=== PATIENT | female | born 1975 | race Caucasian/White ===

== ENCOUNTER 2020-11-14 17:56 | Inpatient (IN) | payer MEDICAID, SELFPAY ==
--- NOTE | ~2020-11-14 | XR_ITS ---
EXAMINATION: XR abdomen/kub 1V DATE: 11/16/2020 05:47 INDICATION: Colitis TECHNIQUE: A supine view of the abdomen on 2 radiographs was obtained. COMPARISON: None. FINDINGS: Small amount of gas scattered throughout nondilated small bowel and colon. There is a relatively ahau stral pattern to the ascending and transverse colon consistent with provided history of ulcerative co litis. Mild bandlike opacities at the lung bases consistent with discoid atelectasis. Heart size is n ormal. Mild lumbar levocurvature with mild spondylosis. IMPRESSION: 1. Nonobstructive bowel gas pattern with ahaustral colon consistent with chronic ulcerative colitis. Reviewed, dictated and finalized at location [facility]. IMPRESSION: 1. Nonobstructive bowel gas pattern with ahaustral colon consistent with chroni c ulcerative colitis.
--- NOTE | ~2020-11-14 | CT_ITS ---
EXAMINATION: CT abdomen pelvis w con DATE: 11/14/2020 19:57 INDICATION: Ulcerative colitis TECHNIQUE: Computed tomography (CT) of the abdomen and pelvis was performed with 100 cc Omnipaque 350 intravenous contrast. Automated exposure control and iterative reconstruction technique were employe d. Exam dose: 785.28 mGy-cm total exam DLP. COMPARISON: None. FINDINGS: The lung bases are clear of infiltrate or consolidation. Normal heart size. No pericardial or pleural effusion. The liver, gallbladder, bile ducts, spleen, pancreas and pancreatic duct are unremarkable other than a likely incidental clinically inconsequential 1 cm hypoattenuating lesion of the spleen. Normal morphology of the adrenal glands. No renal mass lesion is detected. There are scattered small focal areas of diminished cortical enhanc ement of the kidneys which may represent acute pyelonephritis or sequelae of chronic pyelonephritis o r small infarcts. No ureteral calculus or hydroureteronephrosis. Normal caliber of the abdominal aorta. No intraperitoneal or retroperitoneal or pelvic mass lesion or adenopathy or ascites. The uterus, adnexal areas and urinary bladder are unremarkable. Normal appendix. There is prominent fat deposition within the wall of the entire, likely secondary to history of ulcer ative colitis. No colonic stricture or bowel obstruction or intraperitoneal free air. Included skeletal structures are unremarkable. IMPRESSION: Diffuse chronic colonic wall fat deposition, likely secondary to history of ulcerative c olitis Reviewed, dictated and finalized at [facility]. Reviewed, dictated and finalized at location A. IMPRESSION: Diffuse chronic colonic wall fat deposition, likely secondary to h istory of ulcerative colitis
[2020-11-14 17:59] VITALS: BP 107/70; PULSE 113; RESP 20; TEMP 36.4; O2SAT 99
[2020-11-14 18:48] LABS: Basophils Percent Auto 0.3 % (0.2-1.2); Eosinophils Absolute Auto 0.4 K/mm3 (0-0.3); Eosinophils Percent Auto 3.3 % (0-4.4); Hemoglobin 11.4 g/dL (12.0-15.0); Immature Granulocyte Absolute 0.04 K/mm3 (0.00-0.031); Immature Granulocyte Percent A 0.4 % (0-0.5); Lymphocytes Absolute Auto 1.66 K/mm3 (0.9-3.2); Mean Corpuscular HGB Conc 32.6 g/dl (32-36); Mean Corpuscular Volume 89.1 fl (80-100); Mean Platelet Volume 8.8 fl (7.4-10.4); Monocytes Absolute Auto 0.5 K/mm3 (0.1-0.6); Monocytes Percent Auto 4.9 % (2.6-8.5); Neutrophils Absolute Auto 8.4 K/mm3 (1.3-6.7); Neutrophils Percent Auto 76.1 % (45.5-73.1); Platelet Count Result 413 k/mm3 (150-375); Red Blood Count 3.93 M/mm3 (4.2-5.4); Red Cell Distribution Width 13.6 % (11.5-14.5); White Blood Count 11.1 K/mm3 (4.5-10.0)
--- NOTE | 2020-11-14 18:48 | ED.GIBLEED ---
HPI - GI Bleed General Chief complaint: GI Bleed <Buster Mcfarlane MD - Last Filed: 11/15/20 00:38> Stated complaint: rectal bleeding <Buster Mcfarlane MD - Last Filed: 11/15/20 00:38> Time Seen by Provider: 11/14/20 18:38 <Buster Mcfarlane MD - Last Filed: 11/15/20 00:38> Source: patient <Buster Mcfarlane MD - Last Filed: 11/15/20 00:38> Mode of arrival: ambulatory <Buster Mcfarlane MD - Last Filed: 11/15/20 00:38> Limitations: no limitations <Buster Mcfarlane MD - Last Filed: 11/15/20 00:38> History of Present Illness HPI Narrative: Patient is 45 years old white female presents with frequent rectal bleeding for the last 4 weeks got worse over the last few days. Patient usually have up to 10 times episodes of rectal bleeding, over the last 24 hours had at least 50 times episodes of rectal bleeding. History of ulcerative colitis. Patient received IV infusion for antiulcerative colitis medication yesterday. Patient denies any fever, chills, nausea or vomiting. Patient also complaining of diffuse abdominal pain <Buster Mcfarlane MD - Last Filed: 11/15/20 00:38> Related Data Home medications: Home Medications Medication Instructions Recorded Confirmed multivitamin with iron [Daily tablet 11/14/20 Multivitamins/Iron] <Buster Mcfarlane MD - Last Filed: 11/15/20 00:38> Allergies/Adverse reactions: Allergies Allergy/AdvReac Type Severity Reaction Status Date / Time sulfasalazine AdvReac Migraine Verified 11/14/20 18:39 <Buster Mcfarlane MD - Last Filed: 11/15/20 00:38> Review of Systems Review of Systems: Narrative: CONSTITUTIONAL: Denies fever, chills, or sweats. EYES: Denies visual changes, redness, or discharge. ENT: Denies rhinorrhea, congestion, sore throat, or otalgia. CARDIOVASCULAR: Denies chest pain, palpitations, or edema. RESPIRATORY: Denies cough or dyspnea. GASTROINTESTINAL: Abdominal pain, bloody diarrhea GENITOURINARY: Denies dysuria or hematuria. SKIN: Denies rash or itching. MUSCULOSKELETAL: Denies back pain, joint pain, or myalgia. NEUROLOGIC: Denies headache, numbness, or weakness. PSYCHIATRIC: Denies anxiety or depression. <Buster Mcfarlane MD - Last Filed: 11/15/20 00:38> [facility] Social History Social History: Social History Gender identity (if verbalized by the patient): Female <Buster Mcfarlane MD - Last Filed: 11/15/20 00:38> Exam Narrative: Exam Narrative: General appearance: Well-developed, well-nourished Skin: Normal color Head: Normocephalic, nontraumatic Eyes: Clear conjunctiva ENT: Oropharynx normal, ears normal, nose normal Neck: Supple, nontender Chest and respiratory: Airway patent, no respiratory distress, no accessory muscle use Heart: Regular rate/rhythm Abdomen: Soft, severe diffuse tenderness, no organomegaly, quiet bowel sounds, rectal exam showed liquid stool, brownish, guaiac positive, no gross blood Vascular: Normal peripheral pulses, normal capillary refill. Musculoskeletal: Normal range of motion, nontender back Neurologic: Alert and oriented ?3, [employer] is normal as tested, no gross motor deficit <Buster Mcfarlane MD - Last Filed: 11/15/20 00:38> Course Course Emergency Course: Stable <Buster Mcfarlane MD - Last Filed: 11/15/20 00:38> 11/15/20 0030 care turned myself at shift change by Dr. Mcfarlane awaiting bed placement at [facility]. He had discussed with Dr. Troncoso and possible admission nitrate to the [facility] sure she has not received bed [address] Wolff presentation work-up agrees with admission at this time. We will continue on oral vancomycin as this has been recommended
[2020-11-14 18:58] LABS: INR 0.9; Prothrombin Time 12.3 Seconds (11.1-14.7)
[2020-11-14 18:59] LABS: Partial Thromboplastin Time 29.5 SECONDS (22.3-36.8)
[2020-11-14] MEDS: HYDROmorphone HCL INJ (*CRX) 1 MG/ML SYR 0.5 MG IV PUSH ×2 (19:01→20:29)
[2020-11-14] MEDS: ONDANSETRON INJ 4 MG/2 ML VIAL IV PUSH (19:01)
[2020-11-14] MEDS: SODIUM CHLORIDE 0.9% IV 1,000 ML 999 ML IV CONT ×2 (19:01→20:30)
[2020-11-14 19:05] LABS: Alanine Aminotransferase 18 U/L (4-35); Albumin Level 3.5 g/dL (3.5-5.1); Alkaline Phosphatase 99 U/L (38-126); Anion Gap 3 mmol/L (8-16); Aspartate Amino Transferase 21 U/L (14-36); Bilirubin,Total < 0.1 mg/dL (0.2-1.3); Blood Urea Nitrogen 5 mg/dL (7-17); Calcium 8.3 mg/dL (8.4-10.2); Carbon Dioxide 31 mmol/L (22-30); Chloride 105 mmol/L (98-107); Estimated CRCL calculation 91 ml/min; Estimated Glomerular Filt Rate > 60; Glucose 125 mg/dL (65-105); Potassium 3.2 mmol/L (3.4-5.0); Sodium 139 mmol/L (137-145)
[2020-11-14 20:40] VITALS: BP 121/78; PULSE 89; RESP 18; O2SAT 100
--- NOTE | 2020-11-14 21:02 | PC.NURSE ---
talhed to [facility] on a waiting list.
[2020-11-14] MEDS: diphenhydrAMINE HCl INJ 50 MG/ML VIAL IV PUSH (21:44)
[2020-11-14 22:45] VITALS: BP 134/81; PULSE 110; TEMP 36.7; O2SAT 99
[2020-11-15] VITALS (7 sets, daily range): BP systolic 97–132; BP diastolic 58–81; PULSE 76–93; RESP 16–18; TEMP 36.1; O2SAT 97–100; BMI 30.8
[2020-11-15] MEDS: HYDROmorphone HCL INJ (*CRX) 1 MG/ML SYR 0.5 MG IV PUSH ×7 (00:18→20:59)
[2020-11-15] MEDS: diphenhydrAMINE HCl INJ 50 MG/ML VIAL 25 MG IV PUSH ×3 (00:30→17:45)
[2020-11-15 01:13] LABS: Hematocrit 29.8 % (37.0-47.0); Hemoglobin 9.7 g/dL (12.0-15.0)
[2020-11-15] MEDS: SODIUM CHLORIDE 0.9% IV 1,000 ML 125 ML IV CONT ×3 (06:06→20:58)
--- NOTE | 2020-11-15 06:08 | PC.NURSE ---
SPOKE WITH [facility] PATIENT ACCESS...STILL ON WAITLIST. NO BEDS AVAILABLE AT THIS TIME.
--- NOTE | 2020-11-15 07:29 | PC.NURSE ---
Attempted to draw blood at this time, butterfly needle was used. Patient became upset with this nurse and attempted to pull needle out of arm. States get this out of my arm. Needle was removed and gauze was attempted to be applied when patient smacked my hand away. Charge nurse notified and blood was not obtained from patient.
--- NOTE | 2020-11-15 08:15 | ADMGEN ---
This patient, Brigid Neves, was admitted to 2 Medical Room 240-01. Patient/family oriented to hospital policies and general routines including ID bracelet, bed and alarms, visiting hours, pain management, procedures, bathroom and other care routines, personal items, smoking policy, room service/diet, and visiting hours. Information on how to activate the Rapid Response Team has been discussed. Patient/Family are encouraged to report perceived risks to care and to ask questions if they do not understand what they are told or what they should do.
[2020-11-15] MEDS: VANCOMYCIN ORAL 125 MG/2.5 ML SYRUP PO ×3 (09:25→17:44)
--- NOTE | 2020-11-15 11:25 | WPDGICN ---
GI Consult Note Consult date/time: 11/15/20 11:25 HPI: Reason for consultation colitis. This very pleasant lady seen in consultation at request of the hospitalist. The patient was examined and the chart was reviewed. Impression: Here we have a very pleasant lady with history of ulcerative colitis. She is having increasing bloody diarrhea. This may be secondary to underlying exacerbation of ulcerative colitis. Infectious colitis should be considered. Especially seen in the. Anemia secondary to above. GERD with no present treatment. Marijuana use occasional. Recommendation: IV fluids. Clear liquids. Will place on IV steroids. Will try to convert her over to budesonide. This has worked with her in the past. Patient has allergies to mesalamine. PPI. Stool studies. Flexible sigmoidoscopy on Tuesday to evaluate for underlying exacerbation of UC, infectious colitis were seen in the, etc. History: Area of a interesting patient with a history of ulcerative colitis. She is being followed at [facility] for her ulcerative colitis. She was initially placed on Entyvio. However, due to insurance reasons, there was a gap in her administration. She recently had an infusion at [facility]. The patient continues to have frequent diarrhea. She goes more than time times per day. At times is nothing but blood. Nausea, vomiting, hematemesis, dysphagia and odynophagia denied. She does a history of reflux disease. She was told to take some type of medication, however she could not afford the medication. The patient had been evaluated in the emergency room over at [facility]. However, due to the weight she was never evaluated. She presented to the emergency room here at [facility]. The patient continues to have multiple bloody stools. She denies any fever, chills, mouth sores or rashes. She has been having some indigestion and heartburn. The patient previously has been maintained on Entyvio. She has also has received treatment with budesonide. Budesonide usually works for her. She has an intolerance to steroids. She is willing to try steroids temporarily on this visit. Physical examination: General: very pleasant patient in no acute distress. HEENT: Head was normocephalic sclerae is clear mouth without masses neck was supple. Heart: Rate rhythm regular without S3 or S4. Lungs: CTA. Abdomen: Soft with no guarding or rigidity. Bowel sounds were active. Neurologic: Cranial nerves 2 through 12 intact. No focal defects. No clonus. Musculoskeletal system: Revealed no joint tenderness or swelling no muscle atrophy. Extremities: Reveal no significant edema. Skin: Warm and dry with normal turgor. Mental status: intact. Patient is alert and oriented. Has a flat affect. Thank you for allowing me to participate in the care of this most interesting patient. Review of Systems Review of Systems: All systems reviewed & are unremarkable except as noted in HPI and below PMFSH Past Medical History Medical History GERD (gastroesophageal reflux disease) Marijuana use Ulcerative colitis Surgical History Surgical History H/O colonoscopy History of esophagogastroduodenoscopy (EGD) Family History Family History Other Unknown family medical history Social History Social History Smoking packs per day: 0.5 Smoking cigarettes per day: 10.0 Years smoked: 17 Smoking pack-years: 8.50 Smoking status: Former smoker Alcohol intake: never Substance use: never Substance use type: does not use and marijuana Other substance usage details: occasional Gender identity (if verbalized by the patient): Female Spiritual care concerns: No Meds Home Medications and Allergies
[2020-11-15] MEDS: methylPREDNISolone SOD SUCC 40 MG VIAL IV PUSH ×2 (12:49→17:43)
--- NOTE | 2020-11-15 13:40 | PM.IMHP ---
H&P: HPI History of Present Illness Date/Time: 11/15/20 13:40 patient is a 45-year-old female with history of ulcerative colitis and for last few days patient is having persistent diarrhea sometime bloody her symptoms were not improving and patient presented emergency department, normally patient receives her care at the [facility], ER physician contacted her GI and patient is accepted to be transferred pending hospital bed, currently patient complains of pain denies any nausea or vomiting fever or chills, patient is seen by GI suspect patient has exacerbation of ulcerative colitis as well as may have infectious component, will start the patient on Zosyn to cover for the infection, GI has started the patient on Solu-Medrol, will hydrate the patient and continue her pain medication, will continue to monitor and further recommendation to follow Chief Complaint: Abdominal pain Review of Systems Review of Systems: All systems reviewed & are unremarkable except as noted in HPI and below PMFSH Past Medical History Medical History GERD (gastroesophageal reflux disease) Marijuana use Ulcerative colitis Surgical History Surgical History H/O colonoscopy History of esophagogastroduodenoscopy (EGD) Family History Family History Other Unknown family medical history Social History Social History Smoking packs per day: 0.5 Smoking cigarettes per day: 10.0 Years smoked: 17 Smoking pack-years: 8.50 Smoking status: Former smoker Alcohol intake: never Substance use: never Substance use type: does not use and marijuana Other substance usage details: occasional Gender identity (if verbalized by the patient): Female Spiritual care concerns: No Meds Home Medications and Allergies Home Medications Medication Instructions Recorded Confirmed Type vedolizumab [Entyvio] See Rx Instructions .ROUTE .COMPLEX 11/15/20 11/15/20 History Allergies Allergy/AdvReac Type Severity Reaction Status Date / Time sulfasalazine AdvReac Migraine Verified 11/15/20 08:47 Vital Signs Vital Signs - 24 hr 11/14/20 17:59 11/14/20 20:40 11/14/20 22:45 Temperature 97.6 F 98.0 F Pulse Rate 113 H 89 110 H Respiratory Rate 20 18 Blood Pressure 107/70 121/78 134/81 Pulse Oximetry 99 100 99 11/15/20 01:45 11/15/20 04:30 11/15/20 06:17 Temperature Pulse Rate 93 78 90 Respiratory Rate 18 18 18 Blood Pressure 130/80 132/79 110/75 Pulse Oximetry 98 98 98 11/15/20 08:34 Temperature 97.0 F L Pulse Rate 90 Respiratory Rate 18 Blood Pressure 130/81 Pulse Oximetry 99 Exam Narrative: Exam Narrative: Patient is comfortable, NAD HEENT: eyes are clear and none icteric LUNGS:CTA HEART: RR S1S2 ABD: BS+, Soft and diffusely tender Lower extremities: no edema SKIN: nonjaundiced Neuro: grossly intact. H&P: Results Labs Labs: Short CBC 11/14/20 11/15/20 Range/Units 18:40 01:08 WBC 11.1 H (4.5-10.0) K/mm3 Hgb 11.4 L 9.7 L (12.0-15.0) g/dL Hct 35.0 L 29.8 L (37.0-47.0) % Plt Count 413 H (150-375) k/mm3 BMP 11/14/20 18:40 Sodium 139 Potassium 3.2 L Chloride 105 Carbon Dioxide 31 H BUN 5 L Creatinine 0.80 Glucose 125 H Calcium 8.3 L Liver Function 11/14/20 Range/Units 18:40 Total Bilirubin < 0.1 L (0.2-1.3) mg/dL AST 21 (14-36) U/L ALT 18 (4-35) U/L Alkaline Phosphatase 99 (38-126) U/L Albumin 3.5 (3.5-5.1) g/dL Assessment and Plan Assessment and plan (1) Ulcerative colitis, acute: Qualifiers: Digestive disease complication type: unspecified complication Qualified Code(s): K51.919 - Ulcerative colitis, unspecified with unspecified complications Code(s): K51.90 - Ulcerative colitis, unspecified, witho
[2020-11-15] MEDS: PANTOPRAZOLE 40 MG TABLET PO (20:58)
[2020-11-16] LABS: Hematocrit 32.2 % (37.0-47.0); Hemoglobin 10.4 g/dL (12.0-15.0); Mean Corpuscular HGB Conc 32.3 g/dl (32-36); Mean Corpuscular Hemoglobin 29.1 pg (26-34); Mean Corpuscular Volume 90.2 fl (80-100); Mean Platelet Volume 8.8 fl (7.4-10.4); Platelet Count Result 408 k/mm3 (150-375); Red Blood Count 3.57 M/mm3 (4.2-5.4); Red Cell Distribution Width 13.4 % (11.5-14.5); White Blood Count 10.5 K/mm3 (4.5-10.0)
[2020-11-16] MEDS: HYDROmorphone HCL INJ (*CRX) 1 MG/ML SYR 0.5 MG IV PUSH ×5 (00:01→22:11)
[2020-11-16] MEDS: diphenhydrAMINE HCl INJ 50 MG/ML VIAL 25 MG IV PUSH ×4 (00:09→21:07)
[2020-11-16 00:13] LABS: Alanine Aminotransferase 15 U/L (4-35); Albumin Level 3.2 g/dL (3.5-5.1); Alkaline Phosphatase 92 U/L (38-126); Anion Gap 4 mmol/L (8-16); Aspartate Amino Transferase 16 U/L (14-36); Bilirubin,Total < 0.1 mg/dL (0.2-1.3); Blood Urea Nitrogen 2 mg/dL (7-17); CRP 4.6 mg/dL (<1.0); Calcium 8.1 mg/dL (8.4-10.2); Carbon Dioxide 27 mmol/L (22-30); Chloride 108 mmol/L (98-107); Cholesterol 138 mg/dL (0-200); Estimated CRCL calculation 118 ml/min; Estimated Glomerular Filt Rate > 60; Glucose 168 mg/dL (65-105); HDL Direct 40 mg/dL; Lactate Dehydrogenase 219 U/L (313-618); Magnesium 1.8 mg/dL (1.6-2.3); Phosphorus 2.1 mg/dL (2.5-4.5); Potassium 3.8 mmol/L (3.4-5.0); Sodium 139 mmol/L (137-145); Triglycerides 51 mg/dL (<150)
[2020-11-16 00:19] LABS: INR 0.9; Prothrombin Time 12.9 Seconds (11.1-14.7)
[2020-11-16 00:22] LABS: LDL Cholesterol Direct 81 mg/dL
[2020-11-16 00:30] LABS: Iron < 10 ug/dL (37-170)
[2020-11-16 00:41] LABS: Thyroid Stimulating Hormone 0.504 uIU/mL (0.465-4.680)
[2020-11-16 00:48] LABS: Free T4 Free Thyroxine 1.44 ng/mL (0.78-2.19)
[2020-11-16 01:08] LABS: Percent Iron Saturation < 4 % (20-50)
[2020-11-16 01:16] LABS: Folic Acid 14.3 ng/mL (2.76->20)
[2020-11-16] MEDS: SODIUM CHLORIDE 0.9% IV 1,000 ML 125 ML IV CONT ×2 (05:12→13:41)
[2020-11-16 05:26] LABS: Hematocrit 30.8 % (37.0-47.0); Mean Corpuscular HGB Conc 32.5 g/dl (32-36); Mean Corpuscular Hemoglobin 29.1 pg (26-34); Mean Corpuscular Volume 89.5 fl (80-100); Platelet Count Result 400 k/mm3 (150-375); Red Blood Count 3.44 M/mm3 (4.2-5.4); Red Cell Distribution Width 13.3 % (11.5-14.5); White Blood Count 11.3 K/mm3 (4.5-10.0)
[2020-11-16 05:47] LABS: Alanine Aminotransferase 15 U/L (4-35); Albumin Level 3.1 g/dL (3.5-5.1); Alkaline Phosphatase 86 U/L (38-126); Anion Gap 6 mmol/L (8-16); Aspartate Amino Transferase 16 U/L (14-36); Bilirubin,Total < 0.1 mg/dL (0.2-1.3); Blood Urea Nitrogen 2 mg/dL (7-17); Calcium 7.9 mg/dL (8.4-10.2); Carbon Dioxide 23 mmol/L (22-30); Chloride 109 mmol/L (98-107); Estimated CRCL calculation 139 ml/min; Estimated Glomerular Filt Rate > 60; Glucose 156 mg/dL (65-105); Potassium 3.6 mmol/L (3.4-5.0); Sodium 138 mmol/L (137-145)
[2020-11-16] MEDS: methylPREDNISolone SOD SUCC 40 MG VIAL IV PUSH ×5 (05:57→23:27)
[2020-11-16] MEDS: VANCOMYCIN ORAL 125 MG/2.5 ML SYRUP PO ×5 (05:58→23:26)
[2020-11-16 06:00] VITALS: BP 104/58; PULSE 66; RESP 16; TEMP 36.1; O2SAT 97
[2020-11-16] MEDS: BUDESONIDE 3 MG CAP.SR.24H 9 MG PO (08:39)
[2020-11-16] MEDS: PANTOPRAZOLE 40 MG TABLET PO ×2 (08:40→21:06)
[2020-11-16] MEDS: FOLIC ACID 1 MG TABLET PO (08:40)
[2020-11-16] MEDS: oxyCODONE/ACETAMINOPHEN (*CRX) 5-325 MG TABLET 1 TABLET PO ×4 (09:37→23:27)
--- NOTE | 2020-11-16 09:58 | WPDGIPROGNO ---
Subjective Date/time seen: 11/16/20 09:58 The patient continues have some diarrhea and bleeding. She is complaining of abdominal pain. No nausea or vomiting. She is tolerating clear liquids. No indigestion or heartburn. She is tolerating IV steroids. General: very pleasant patient in no acute distress. HEENT: Head was normocephalic sclerae is clear mouth without masses neck was supple. Heart: Rate rhythm regular without S3 or S4. Lungs: CTA. Abdomen: Soft with no guarding or rigidity. Bowel sounds were active. Neurologic: Cranial nerves 2 through 12 intact. No focal defects. No clonus. Musculoskeletal system: Revealed no joint tenderness or swelling no muscle atrophy. Extremities: Reveal no significant edema. Skin: Warm and dry with normal turgor. Mental status: intact. Patient is alert and oriented. Impression: Here we have a very pleasant lady with history of ulcerative colitis. She is having increasing bloody diarrhea. This may be secondary to underlying exacerbation of ulcerative colitis. Infectious colitis/CMV colitis needs to be excluded. Anemia secondary to above. GERD with no present treatment. Marijuana use occasional. Recommendation: Continue IV steroids. Recheck laboratory studies. Cautious use of narcotics. Will have Dr. Dooley perform a flexible sigmoidoscopy in the morning. Review of Systems Review of Systems: All systems reviewed & are unremarkable except as noted in HPI and below Objective Data Vital Signs Vital Signs: Vital Signs - 24 hr 11/15/20 14:00 11/15/20 18:53 11/15/20 22:00 Temperature 36.1 C L 36.1 C L 36.1 C L Pulse Rate 80 76 84 Respiratory Rate 18 16 16 Blood Pressure 101/60 106/71 97/58 L Pulse Oximetry 97 100 98 11/16/20 06:00 Temperature 36.1 C L Pulse Rate 66 Respiratory Rate 16 Blood Pressure 104/58 L Pulse Oximetry 97 Intake/Output Intake/Output: Intake & Output 11/13/20 11/14/20 11/15/20 11/16/20 23:59 23:59 23:59 23:59 Intake Total 1999 1100 1940 Balance 1999 1100 1940 Meds/Results Medications: Active Medications Generic Name Dose Route Start Last Admin Trade Name Freq PRN Reason Stop Dose Admin Budesonide 9 mg 11/16/20 09:00 11/16/20 08:39 Budesonide 3 Mg Cap.Sr.24h PO 9 mg QAM ABBIE Administration Diphenhydramine HCl 25 mg 11/15/20 08:58 11/16/20 06:02 Diphenhydramine Hcl Inj 50 Mg/Ml Vial IV PUSH 25 mg Q4H PRN Administration Itching Folic Acid 1 mg 11/16/20 09:00 11/16/20 08:40 Folic Acid 1 Mg Tablet PO 1 mg DAILY ABBIE Administration Hydromorphone HCl 0.5 mg 11/16/20 08:34 11/16/20 09:38 Hydromorphone Hcl Inj (*Crx) 1 Mg/Ml Syr IV PUSH 0.5 mg Q6H PRN Administration Pain Rated 7-10 Sodium Chloride 1,000 mls @ 125 mls/hr 11/15/20 06:55 11/16/20 05:12 Normal Saline Iv IV CONT 125 mls/hr .Q8H ABBIE Administration Methylprednisolone Sodium Succinate 40 mg 11/15/20 12:00 11/16/20 05:57 Methylprednisolone Sod Succ 40 Mg Vial IV PUSH 40 mg Q6HR ABBIE Administration Oxycodone/Acetaminophen 1 tablet 11/16/20 08:32 11/16/20 09:37 Oxycodone/Acetaminophen (*Crx) 5-325 Mg Tablet PO 1 tablet Q4H PRN Administration Pain Rated 7-10 Pantoprazole Sodium 40 mg 11/15/20 21:00 11/16/20 08:40 Pantoprazole 40 Mg Tablet PO 40 mg Q12HR ABBIE Administration Vancomycin HCl 125 mg 11/15/20 12:00 11/16/20 05:58 Vancomycin Oral 125 Mg/2.5 Ml Syrup PO 11/25/20 12:01 125 mg Q6HR ABBIE Administration Radiology Results: ITS Impressions Abdomen/Pelvis CT 11/14/20 20:02 IMPRESSION: Diffuse chronic colonic wall fat deposition, likely secondary to history of ulcerative colitis Abdomen X-Ray 11/16/20 08:30 IMPRESSION: 1. Nonobstructive bowel gas pattern with ahaustral colon consistent with chronic ulcerative colitis. Labs Labs: Laboratory Results - last 24 hr 11/15/20 11/15/20 11/15/20 23:33 23:33 23:33 WBC 10.5 H
[2020-11-16 11:39] LABS: Prothrombin Time 13.4 Seconds (11.1-14.7)
[2020-11-16 11:40] LABS: Phosphorus 2.6 mg/dL (2.5-4.5)
--- NOTE | 2020-11-16 13:19 | PM.IMPN ---
Progress Note: A&P Assessment and Plan (1) Ulcerative colitis, acute: Qualifiers: Digestive disease complication type: unspecified complication Qualified Code(s): K51.919 - Ulcerative colitis, unspecified with unspecified complications Code(s): K51.90 - Ulcerative colitis, unspecified, without complications Status: Acute Assessment and Plan: 11/16/20 13:19 patient is a 45-year-old female with history of ulcerative colitis and for last few days patient is having persistent diarrhea sometime bloody her symptoms were not improving and patient presented emergency department, normally patient receives her care at the [facility], ER physician contacted her GI and patient is accepted to be transferred pending hospital bed, currently patient complains of pain denies any nausea or vomiting fever or chills, patient is seen by GI suspect patient has exacerbation of ulcerative colitis as well as may have infectious component, will start the patient on Zosyn to cover for the infection, GI has started the patient on Solu-Medrol, will hydrate the patient and continue her pain medication, will continue to monitor and further recommendation to follow. 11/16 patient is seen by GI and being treated solumedrol, IVF, and pain medications, patient still c/o diarrhea and bleeding, as well as abdominal pain, no vomiting, will continue clear diet, GI recommending flex sig tomorrow to further evaluation, will continue to monitor and further recommendation to follow. (2) Diarrhea: Qualifiers: Diarrhea type: presumed infectious Qualified Code(s): R19.7 - Diarrhea, unspecified Code(s): R19.7 - Diarrhea, unspecified Status: Acute Assessment and Plan: Secondary to exacerbation of her ulcerative colitis, plan is above Subjective Date/time seen: 11/16/20 13:19 patient is a 45-year-old female with history of ulcerative colitis and for last few days patient is having persistent diarrhea sometime bloody her symptoms were not improving and patient presented emergency department, normally patient receives her care at the [facility], ER physician contacted her GI and patient is accepted to be transferred pending hospital bed, currently patient complains of pain denies any nausea or vomiting fever or chills, patient is seen by GI suspect patient has exacerbation of ulcerative colitis as well as may have infectious component, will start the patient on Zosyn to cover for the infection, GI has started the patient on Solu-Medrol, will hydrate the patient and continue her pain medication, will continue to monitor and further recommendation to follow. 11/16 patient is seen by GI and being treated solumedrol, IVF, and pain medications, patient still c/o diarrhea and bleeding, as well as abdominal pain, no vomiting, will continue clear diet, GI recommending flex sig tomorrow to further evaluation, will continue to monitor and further recommendation to follow. Review of Systems Review of Systems: All systems reviewed & are unremarkable except as noted in HPI and below Exam Narrative: Exam Narrative: Patient is comfortable, NAD HEENT: eyes are clear and none icteric LUNGS:CTA HEART: RR S1S2 ABD: BS+, Soft and diffusely tender Lower extremities: no edema SKIN: nonjaundiced Neuro: grossly intact. Objective Data Vital Signs Vital Signs: Vital Signs - 24 hr 11/15/20 14:00 11/15/20 18:53 11/15/20 22:00 Temperature 97.0 F L 97 F L 96.9 F L Pulse Rate 80 76 84 Respiratory Rate 18 16 16 Blood Pressure 101/60 106/71 97/58 L Pulse Oximetry 97 100 98 11/16/20 06:00 Temperature 97.0 F L Pulse Rate 66 Respiratory Rate 16 Blood Pressure 104/58 L Pulse Oximetry 97 Intake/Output Intake/Output: Intake & Output 11/13/20 11/14/20 11/15/20 11/16/20 23:59 23:59 23:59 23:59 Intake Total 1999 1100 2180 Balance 1999 1100 2180 Meds/Results Medications: Active Medications Generic Name Dos
[2020-11-16 14:00] VITALS: BP 108/58; PULSE 93; RESP 18; TEMP 36.2; O2SAT 96
[2020-11-16 15:18] VITALS: PULSE 74; RESP 18; O2SAT 94
[2020-11-16] MEDS: SIMETHICONE 80 MG TAB.CHEW 160 MG PO ×2 (16:14→21:06)
[2020-11-16] MEDS: polyethylene glycoL 3350 238 GM BOTTLE PO (16:16)
[2020-11-16] MEDS: ONDANSETRON INJ 4 MG/2 ML VIAL IV PUSH (19:19)
[2020-11-16 21:05] VITALS: BP 117/75; PULSE 57; RESP 18; TEMP 36.4; O2SAT 97
[2020-11-17] VITALS (7 sets, daily range): BP systolic 104–137; BP diastolic 62–79; PULSE 53–73; RESP 16–20; TEMP 36.1–36.6; O2SAT 96–100
[2020-11-17] MEDS: SIMETHICONE 80 MG TAB.CHEW 160 MG PO (04:05)
[2020-11-17] MEDS: HYDROmorphone HCL INJ (*CRX) 1 MG/ML SYR 0.5 MG IV PUSH ×3 (04:09→19:22)
[2020-11-17] MEDS: VANCOMYCIN ORAL 125 MG/2.5 ML SYRUP PO ×4 (06:13→23:57)
[2020-11-17] MEDS: methylPREDNISolone SOD SUCC 40 MG VIAL IV PUSH ×2 (06:14→17:12)
[2020-11-17] MEDS: oxyCODONE/ACETAMINOPHEN (*CRX) 5-325 MG TABLET 1 TABLET PO ×4 (06:14→21:58)
[2020-11-17 10:37] LABS: Hematocrit 31.5 % (37.0-47.0); Hemoglobin 10.1 g/dL (12.0-15.0); Mean Corpuscular HGB Conc 32.1 g/dl (32-36); Mean Corpuscular Hemoglobin 28.9 pg (26-34); Mean Corpuscular Volume 90.3 fl (80-100); Platelet Count Result 414 k/mm3 (150-375); Red Blood Count 3.49 M/mm3 (4.2-5.4); Red Cell Distribution Width 13.7 % (11.5-14.5); White Blood Count 15.1 K/mm3 (4.5-10.0)
[2020-11-17 10:49] LABS: Alanine Aminotransferase 14 U/L (4-35); Albumin Level 3.1 g/dL (3.5-5.1); Alkaline Phosphatase 84 U/L (38-126); Anion Gap 5 mmol/L (8-16); Aspartate Amino Transferase 14 U/L (14-36); Bilirubin,Total < 0.1 mg/dL (0.2-1.3); Blood Urea Nitrogen 6 mg/dL (7-17); Calcium 8.2 mg/dL (8.4-10.2); Carbon Dioxide 25 mmol/L (22-30); Chloride 111 mmol/L (98-107); Estimated CRCL calculation 118 ml/min; Estimated Glomerular Filt Rate > 60; Glucose 116 mg/dL (65-105); Magnesium 1.9 mg/dL (1.6-2.3); Potassium 4.1 mmol/L (3.4-5.0); Sodium 141 mmol/L (137-145)
--- NOTE | 2020-11-17 11:51 | PC.NURSE ---
To GI lab via wheelchair with GI lab staff.
[2020-11-17] MEDS: LACTATED RINGERS 1,000 ML 150 ML IV CONT (12:00)
--- NOTE | 2020-11-17 12:03 | WPDANESEPPF ---
Anes - Initial Pre Proc Eval Procedure: Operation Date: 11/17/20 13:30 Proposed Procedures p Colonoscopy - De Guido MD Date/Time: 11/17/20 12:03 Surgeon: Shilpa Wolff DO Pre Op Diagnosis: GI bleed/ulcerative colitis Patient Data Age: 45 Gender: F Height: 5 ft 7 in Weight: 89.3 kg Last Vital Signs Temp 97.9 F 11/17/20 11:58 Pulse 56 L 11/17/20 11:58 Resp 16 11/17/20 11:58 BP 137/79 11/17/20 11:58 Pulse Ox 97 11/17/20 11:58 Allergies Allergy/AdvReac Type Severity Reaction Status Date / Time sulfasalazine AdvReac Migraine Verified 11/17/20 11:55 Home Medications Medication Instructions Recorded Confirmed Type vedolizumab [Entyvio] See Rx Instructions .ROUTE .COMPLEX 11/15/20 11/15/20 History Laboratory Tests 11/17/20 11/17/20 10:27 10:27 WBC 15.1 K/mm3 H K/mm3 (4.5-10.0) RBC 3.49 M/mm3 L M/mm3 (4.2-5.4) Hgb 10.1 g/dL L g/dL (12.0-15.0) Hct 31.5 % L % (37.0-47.0) MCV 90.3 fl fl (80-100) MCH 28.9 pg pg (26-34) MCHC 32.1 g/dl g/dl (32-36) RDW 13.7 % % (11.5-14.5) Plt Count 414 k/mm3 H k/mm3 (150-375) MPV 9.0 fl fl (7.4-10.4) Sodium 141 mmol/L mmol/L (137-145) Potassium 4.1 mmol/L mmol/L (3.4-5.0) Chloride 111 mmol/L H mmol/L (98-107) Carbon Dioxide 25 mmol/L mmol/L (22-30) Anion Gap 5 mmol/L L mmol/L (8-16) BUN 6 mg/dL L mg/dL (7-17) Creatinine 0.60 mg/dL L mg/dL (0.7-1.0) Estim Creat Clear Calc 118 ml/min ml/min Estimated GFR > 60 (59 - ) Glucose 116 mg/dL H mg/dL (65-105) Calcium 8.2 mg/dL L mg/dL (8.4-10.2) Magnesium 1.9 mg/dL mg/dL (1.6-2.3) Total Bilirubin < 0.1 mg/dL L mg/dL (0.2-1.3) AST 14 U/L U/L (14-36) ALT 14 U/L U/L (4-35) Alkaline Phosphatase 84 U/L U/L (38-126) Total Protein 6.0 g/dL L g/dL (6.3-8.2) Albumin 3.1 g/dL L g/dL (3.5-5.1) Patient hx anesthesia problems: none Family hx anesthesia problems: none [facility] Past Medical History Medical History GERD (gastroesophageal reflux disease) Marijuana use Ulcerative colitis Surgical History Surgical History H/O colonoscopy History of esophagogastroduodenoscopy (EGD) Family History Family History Other Unknown family medical history Social History Social History Smoking packs per day: 0.5 Smoking cigarettes per day: 10.0 Years smoked: 17 Smoking pack-years: 8.50 Smoking status: Former smoker Alcohol intake: never Substance use: never Substance use type: does not use and marijuana Other substance usage details: occasional Gender identity (if verbalized by the patient): Female Spiritual care concerns: No Anes - Eval Final PreProcedure Day of Procedure 11/17/20 12:03 Patient weight: overweight Heart: regular rate and rhythm Lungs: clear to auscultation Airway: Mallampati scale class II Neurological: alert and oriented Last oral intake: >/= 8 hours ASA classification: III Emergent: no Anesthetic plan: proceed Anesthesia type and monitoring: general GIVS and standard monitoring Informed Consent: The patient's anesthetic plan and its attendant risks and benefits were discussed with the patient/family/POA. Questions were solicited and answers provided to the satisfaction of the patient/family/POA.
--- NOTE | 2020-11-17 13:11 | PM.IMPN ---
Progress Note: A&P Assessment and Plan (1) Ulcerative colitis, acute: Qualifiers: Digestive disease complication type: unspecified complication Qualified Code(s): K51.919 - Ulcerative colitis, unspecified with unspecified complications Code(s): K51.90 - Ulcerative colitis, unspecified, without complications Status: Acute Assessment and Plan: 11/17/20 13:11 patient is a 45-year-old female with history of ulcerative colitis and for last few days patient is having persistent diarrhea sometime bloody her symptoms were not improving and patient presented emergency department, normally patient receives her care at the [facility], ER physician contacted her GI and patient is accepted to be transferred pending hospital bed, currently patient complains of pain denies any nausea or vomiting fever or chills, patient is seen by GI suspect patient has exacerbation of ulcerative colitis as well as may have infectious component, will start the patient on Zosyn to cover for the infection, GI has started the patient on Solu-Medrol, will hydrate the patient and continue her pain medication, will continue to monitor and further recommendation to follow. 11/16 patient is seen by GI and being treated solumedrol, IVF, and pain medications, patient still c/o diarrhea and bleeding, as well as abdominal pain, no vomiting, will continue clear diet, GI recommending flex sig tomorrow to further evaluation, will continue to monitor and further recommendation to follow. 11/17 today patient stats she is feeling better and abdominal pain is better, patient is scheduled for colonoscopy today and will continue present management and further recommendation to follow. (2) Diarrhea: Qualifiers: Diarrhea type: presumed infectious Qualified Code(s): R19.7 - Diarrhea, unspecified Code(s): R19.7 - Diarrhea, unspecified Status: Acute Assessment and Plan: Secondary to exacerbation of her ulcerative colitis, plan is above Subjective Date/time seen: 11/17/20 13:11 patient is a 45-year-old female with history of ulcerative colitis and for last few days patient is having persistent diarrhea sometime bloody her symptoms were not improving and patient presented emergency department, normally patient receives her care at the [facility], ER physician contacted her GI and patient is accepted to be transferred pending hospital bed, currently patient complains of pain denies any nausea or vomiting fever or chills, patient is seen by GI suspect patient has exacerbation of ulcerative colitis as well as may have infectious component, will start the patient on Zosyn to cover for the infection, GI has started the patient on Solu-Medrol, will hydrate the patient and continue her pain medication, will continue to monitor and further recommendation to follow. 11/16 patient is seen by GI and being treated solumedrol, IVF, and pain medications, patient still c/o diarrhea and bleeding, as well as abdominal pain, no vomiting, will continue clear diet, GI recommending flex sig tomorrow to further evaluation, will continue to monitor and further recommendation to follow. 11/17 today patient stats she is feeling better and abdominal pain is better, patient is scheduled for colonoscopy today and will continue present management and further recommendation to follow. Review of Systems Review of Systems: All systems reviewed & are unremarkable except as noted in HPI and below Exam Narrative: Exam Narrative: Patient is comfortable, NAD HEENT: eyes are clear and none icteric LUNGS:CTA HEART: RR S1S2 ABD: BS+, Soft and diffusely tender Lower extremities: no edema SKIN: nonjaundiced Neuro: grossly intact. Objective Data Vital Signs Vital Signs: Vital Signs - 24 hr 11/16/20 14:00 11/16/20 15:18 11/16/20 21:05 Temperature 97.2 F L 97.6 F Pulse Rate 93 74 57 L Respiratory Rate 18 18 18 Blood Pressure 108/58 L 117/75 Pulse Oxim
[2020-11-17] MEDS: FOLIC ACID 1 MG TABLET PO (13:46)
--- NOTE | 2020-11-17 13:57 | PC.NURSE ---
Patient asking about having her Entocort EC resumed. She states Dr. Dooley mentioned it after her colonoscopy today. Called and left a message with biomedical field service engineer at Dr. Dooley' office regarding same.
[2020-11-17] MEDS: diphenhydrAMINE HCl INJ 50 MG/ML VIAL 25 MG IV PUSH (17:12)
[2020-11-17] MEDS: ONDANSETRON INJ 4 MG/2 ML VIAL IV PUSH ×2 (17:13→21:15)
[2020-11-17] MEDS: diphenhydrAMINE HCl CAP 25 MG CAPSULE PO (20:49)
[2020-11-17] MEDS: BUDESONIDE 3 MG CAP.SR.24H 9 MG PO (20:49)
[2020-11-18] MEDS: oxyCODONE/ACETAMINOPHEN (*CRX) 5-325 MG TABLET 1 TABLET PO ×5 (01:58→23:22)
[2020-11-18] MEDS: diphenhydrAMINE HCl INJ 50 MG/ML VIAL 25 MG IV PUSH ×2 (02:00→06:03)
--- NOTE | 2020-11-18 05:10 | PC.NURSE ---
Patient refused morning lab draws at 05:00 11/18/2020
[2020-11-18 05:23] VITALS: BP 129/70; PULSE 50; RESP 20; O2SAT 100
[2020-11-18] MEDS: HYDROmorphone HCL INJ (*CRX) 1 MG/ML SYR 0.5 MG IV PUSH ×2 (05:35→06:50)
[2020-11-18] MEDS: VANCOMYCIN ORAL 125 MG/2.5 ML SYRUP PO ×2 (05:35→11:34)
[2020-11-18 06:19] VITALS: BP 147/80; PULSE 45; RESP 18; O2SAT 98
--- NOTE | 2020-11-18 07:39 | PC.NURSE ---
Patient refused to have a.m. labs drawn today. Also refused IV Solumedrol this morning because she fears it is making her itch. Notified Dr. Cummings that patient refused lab draw again today and refused a.m. Solumedrol. He states he will discuss plan with Dr. Guido.
--- NOTE | 2020-11-18 08:04 | PC.NURSE ---
Patient requested to hold off on her a.m. po meds for now.
[2020-11-18] MEDS: BUDESONIDE 3 MG CAP.SR.24H 9 MG PO (11:31)
[2020-11-18] MEDS: FOLIC ACID 1 MG TABLET PO (11:31)
--- NOTE | 2020-11-18 12:58 | PM.IMPN ---
Progress Note: A&P Assessment and Plan (1) Ulcerative colitis, acute: Qualifiers: Digestive disease complication type: unspecified complication Qualified Code(s): K51.919 - Ulcerative colitis, unspecified with unspecified complications Code(s): K51.90 - Ulcerative colitis, unspecified, without complications Status: Acute Assessment and Plan: 11/18/20 12:58 patient is a 45-year-old female with history of ulcerative colitis and for last few days patient is having persistent diarrhea sometime bloody her symptoms were not improving and patient presented emergency department, normally patient receives her care at the [facility], ER physician contacted her GI and patient is accepted to be transferred pending hospital bed, currently patient complains of pain denies any nausea or vomiting fever or chills, patient is seen by GI suspect patient has exacerbation of ulcerative colitis as well as may have infectious component, will start the patient on Zosyn to cover for the infection, GI has started the patient on Solu-Medrol, will hydrate the patient and continue her pain medication, will continue to monitor and further recommendation to follow. 11/16 patient is seen by GI and being treated solumedrol, IVF, and pain medications, patient still c/o diarrhea and bleeding, as well as abdominal pain, no vomiting, will continue clear diet, GI recommending flex sig tomorrow to further evaluation, will continue to monitor and further recommendation to follow. 11/17 today patient stats she is feeling better and abdominal pain is better, patient is scheduled for colonoscopy today and will continue present management and further recommendation to follow. 11/18 today patient stats she is still in lot of pain and requesting deluded and Benadryl discussed with GI, patient can be discharged oral abx, and budesonide, and follow up in 2 weeks with GI. will stop IV abx and switch patient to oral medication and clear liquids and advance her diet as tolerated. possibly discharge patient tomorrow. (2) Diarrhea: Qualifiers: Diarrhea type: presumed infectious Qualified Code(s): R19.7 - Diarrhea, unspecified Code(s): R19.7 - Diarrhea, unspecified Status: Acute Assessment and Plan: Secondary to exacerbation of her ulcerative colitis, plan is above Subjective Date/time seen: 11/18/20 12:58 patient is a 45-year-old female with history of ulcerative colitis and for last few days patient is having persistent diarrhea sometime bloody her symptoms were not improving and patient presented emergency department, normally patient receives her care at the [facility], ER physician contacted her GI and patient is accepted to be transferred pending hospital bed, currently patient complains of pain denies any nausea or vomiting fever or chills, patient is seen by GI suspect patient has exacerbation of ulcerative colitis as well as may have infectious component, will start the patient on Zosyn to cover for the infection, GI has started the patient on Solu-Medrol, will hydrate the patient and continue her pain medication, will continue to monitor and further recommendation to follow. 11/16 patient is seen by GI and being treated solumedrol, IVF, and pain medications, patient still c/o diarrhea and bleeding, as well as abdominal pain, no vomiting, will continue clear diet, GI recommending flex sig tomorrow to further evaluation, will continue to monitor and further recommendation to follow. 11/17 today patient stats she is feeling better and abdominal pain is better, patient is scheduled for colonoscopy today and will continue present management and further recommendation to follow. 11/18 today patient stats she is still in lot of pain and requesting deluded and Benadryl discussed with GI, patient can be discharged oral abx, and budesonide, and follow up in 2 weeks with GI. will stop IV abx and switch patient to oral medication and
[2020-11-18 14:00] VITALS: BP 118/72; PULSE 53; RESP 18; TEMP 36.5; O2SAT 97
--- NOTE | 2020-11-18 14:21 | WPDANESPN ---
Anes - Prog Note Post-Op Date/Time: 11/18/20 14:21 Cardiovascular status: normal Respiratory status: normal Airway patency: baseline Mental status: baseline Post-Op hydration status: normal Vital Signs: Last Vital Signs Temp 36.5 C 11/18/20 14:00 Pulse 53 L 11/18/20 14:00 Resp 18 11/18/20 14:00 BP 118/72 11/18/20 14:00 Pulse Ox 97 11/18/20 14:00 Pain Score (VAS): 5 I/O: Intake & Output 11/17/20 11/18/20 11/18/20 23:59 07:59 15:59 Intake Total 240 650 240 Balance 240 650 240 Laboratory Tests 11/17/20 10:27 11/17/20 10:27 11/15/20 13:03 Stool Rotavirus Antigen Pending Microbiology 11/15/20 13:03 Stool Giardia Antigen (FLOYD) - Final 11/15/20 13:03 Stool Escherichia coli Shiga Toxins - Final 11/15/20 13:03 Stool Clostridioides difficile Toxin Assay - Final Post-procedural complaints: none Patient Feedback: Patient satisfied with anesthetic care.
--- NOTE | 2020-11-18 15:34 | WPDGIPROGNO ---
Progress Note: A&P Assessment and Plan (1) Ulcerative colitis, acute: Qualifiers: Digestive disease complication type: unspecified complication Qualified Code(s): K51.919 - Ulcerative colitis, unspecified with unspecified complications Code(s): K51.90 - Ulcerative colitis, unspecified, without complications Status: Acute Assessment and Plan: colonoscopy showed active UC, she just recently started again entyvio and her second dose is November 28 probably can go home tomorrow with budesonide (she says that in the past tried 5 asa products without relief, also remicade, humira, etc) discontinue oral vancomycin (negative c diff) she had UC for over 18 years (2) Diarrhea: Qualifiers: Diarrhea type: presumed infectious Qualified Code(s): R19.7 - Diarrhea, unspecified Code(s): R19.7 - Diarrhea, unspecified Status: Acute Assessment and Plan: improved, pending biopsies (3) Lower abdominal pain: Code(s): R10.30 - Lower abdominal pain, unspecified Status: Acute Assessment and Plan: better Subjective Date/time seen: 11/18/20 15:34 Interval history: last night had more abdominal pain but today is feeling better, excited to eat more Review of Systems Review of Systems: All systems reviewed & are unremarkable except as noted in HPI and below Exam Const: General: comfortable and no acute distress HENMT: General nose exam: Normal nares present Eyes: General: appearance normal, both eyes and all related structures Neck: Neck: supple Resp: Auscultation: clear to auscultation bilaterally Cardio: Rate: regular rate GI: GI Palp: Yes Soft to palpation and No Guarding due to palpation present (GI) Auscultation: normal bowel sounds Skin: General skin exam: normal color Neuro: Speech: normal speech Motor exam (neuro): Normal motor muscle tone present throughout Extrem: General: normal to inspection Objective Data Vital Signs Vital Signs: Vital Signs - 24 hr 11/17/20 21:16 11/18/20 05:23 11/18/20 06:19 Temperature 97.5 F L Pulse Rate 69 50 L 45 L Respiratory Rate 18 20 18 Blood Pressure 134/78 129/70 147/80 H Pulse Oximetry 96 100 98 11/18/20 14:00 Temperature 97.7 F Pulse Rate 53 L Respiratory Rate 18 Blood Pressure 118/72 Pulse Oximetry 97 Intake/Output Intake/Output: Intake & Output 11/15/20 11/16/20 11/17/20 11/18/20 23:59 23:59 23:59 23:59 Intake Total 1150 4180 1040 890 Output Total 3 Balance 1150 4180 1037 890 Meds/Results Medications: Active Medications Generic Name Dose Route Start Last Admin Trade Name Freq PRN Reason Stop Dose Admin Budesonide 9 mg 11/17/20 21:00 11/18/20 11:31 Budesonide 3 Mg Cap.Sr.24h PO 9 mg QAM ABBIE Administration Folic Acid 1 mg 11/16/20 09:00 11/18/20 11:31 Folic Acid 1 Mg Tablet PO 1 mg DAILY ABBIE Administration Methylprednisolone Sodium Succinate 40 mg 11/17/20 18:00 11/18/20 05:43 Methylprednisolone Sod Succ 40 Mg Vial IV PUSH Not Given Q12H ABBIE Ondansetron HCl 4 mg 11/16/20 18:39 11/17/20 21:15 Ondansetron Inj 4 Mg/2 Ml Vial IV PUSH 4 mg Q4H PRN Administration Nausea And Vomiting Oxycodone/Acetaminophen 1 tablet 11/16/20 08:32 11/18/20 15:28 Oxycodone/Acetaminophen (*Crx) 5-325 Mg Tablet PO 1 tablet Q4H PRN Administration Pain Rated 7-10 Vancomycin HCl 125 mg 11/15/20 12:00 11/18/20 11:34 Vancomycin Oral 125 Mg/2.5 Ml Syrup PO 11/25/20 12:01 125 mg Q6HR ABBIE Administration Radiology Results: ITS Impressions Abdomen/Pelvis CT 11/14/20 20:02 IMPRESSION: Diffuse chronic colonic wall fat deposition, likely secondary to history of ulcerative colitis Abdomen X-Ray 11/16/20 08:30 IMPRESSION: 1. Nonobstructive bowel gas pattern with ahaustral colon consistent with chronic ulcerative colitis.
--- NOTE | 2020-11-18 17:00 | PC.NURSE ---
Patient c/o itching all over . No signs of rash noted. Patient requesting IV Benadryl. Discussed with Dr. Cummings. Order received for po Benadryl.
[2020-11-18] MEDS: diphenhydrAMINE HCl CAP 25 MG CAPSULE PO ×2 (17:35→23:34)
[2020-11-18 21:15] VITALS: BP 106/54; PULSE 63; RESP 16; TEMP 36.1; O2SAT 97
[2020-11-19] MEDS: oxyCODONE/ACETAMINOPHEN (*CRX) 5-325 MG TABLET 1 TABLET PO ×2 (03:29→07:33)
[2020-11-19 06:00] VITALS: BP 109/58; PULSE 66; RESP 18; TEMP 36.2; O2SAT 98
[2020-11-19] MEDS: BUDESONIDE 3 MG CAP.SR.24H 9 MG PO (07:34)
[2020-11-19] MEDS: FOLIC ACID 1 MG TABLET PO (07:34)
--- NOTE | 2020-11-19 09:56 | PM.DS ---
DS: Admitting Diagnosis Admitting Diagnosis Admitting Diagnosis: Chief Complaint: Abdominal pain DS: Discharge Diagnosis Discharge Diagnosis (1) Ulcerative colitis, acute: Qualifiers: Digestive disease complication type: unspecified complication Qualified Code(s): K51.919 - Ulcerative colitis, unspecified with unspecified complications Code(s): K51.90 - Ulcerative colitis, unspecified, without complications Status: Acute Assessment and Plan: 11/18/20 12:58 patient is a 45-year-old female with history of ulcerative colitis and for last few days patient is having persistent diarrhea sometime bloody her symptoms were not improving and patient presented emergency department, normally patient receives her care at the [facility], ER physician contacted her GI and patient is accepted to be transferred pending hospital bed, currently patient complains of pain denies any nausea or vomiting fever or chills, patient is seen by GI suspect patient has exacerbation of ulcerative colitis as well as may have infectious component, will start the patient on Zosyn to cover for the infection, GI has started the patient on Solu-Medrol, will hydrate the patient and continue her pain medication, will continue to monitor and further recommendation to follow. 11/16 patient is seen by GI and being treated solumedrol, IVF, and pain medications, patient still c/o diarrhea and bleeding, as well as abdominal pain, no vomiting, will continue clear diet, GI recommending flex sig tomorrow to further evaluation, will continue to monitor and further recommendation to follow. 11/17 today patient stats she is feeling better and abdominal pain is better, patient is scheduled for colonoscopy today and will continue present management and further recommendation to follow. 11/18 today patient stats she is still in lot of pain and requesting deluded and Benadryl discussed with GI, patient can be discharged oral abx, and budesonide, and follow up in 2 weeks with GI. will stop IV abx and switch patient to oral medication and clear liquids and advance her diet as tolerated. possibly discharge patient tomorrow. (2) Diarrhea: Qualifiers: Diarrhea type: presumed infectious Qualified Code(s): R19.7 - Diarrhea, unspecified Code(s): R19.7 - Diarrhea, unspecified Status: Acute Assessment and Plan: Secondary to exacerbation of her ulcerative colitis, plan is above DS: Summary Hospital Course Reason for hospitalization: Date/Time: 11/15/20 13:40 patient is a 45-year-old female with history of ulcerative colitis and for last few days patient is having persistent diarrhea sometime bloody her symptoms were not improving and patient presented emergency department, normally patient receives her care at the [facility], ER physician contacted her GI and patient is accepted to be transferred pending hospital bed, currently patient complains of pain denies any nausea or vomiting fever or chills, patient is seen by GI suspect patient has exacerbation of ulcerative colitis as well as may have infectious component, will start the patient on Zosyn to cover for the infection, GI has started the patient on Solu-Medrol, will hydrate the patient and continue her pain medication, will continue to monitor and further recommendation to follow Chief Complaint: Abdominal pain Hospital Course: patient is a 45-year-old female with history of ulcerative colitis and for last few days patient is having persistent diarrhea sometime bloody her symptoms were not improving and patient presented emergency department, normally patient receives her care at the [facility], ER physician contacted her GI and patient is accepted to be transferred pending hospital bed, currently patient complains of pain denies any nausea or vomiting fever or chills, patient is seen by GI suspect patient has exacerbation of ulcerative colitis as well as may have infectious component
--- NOTE | 2020-11-19 12:02 | PC.NURSE ---
Patient seemed very irritated while I was attempting to go through discharge instructions. I first handed her the work release form and she looked at it, rolled her eyes and stated This isn't correct. I have to have on here that I have no restrictions. I informed her this was what Dr. Cummings had ordered but I would contact him and see if we could add no restrictions to release form. Patient seemed irritated and not willing to listen to discharge instructions. She got up in the middle of me reading instructions to her and went to open the closet doors. I asked her if I could finish the discharge before she began packing up her things or if she would like me to come back. Patient stated yeah I guess you can finish reading that to me. However, it appeared she didn't care to listen to anything I was teaching/explaining to her. I fixed work release instructions to say no restrictions per her request. I handed her the new release and she then looked at it and stated I have to go back to work tomorrow. You have to get him to change it to tomorrow. (previously patient did not mention anything regarding the date on the first release I gave to her). Received orders from Emiliano to change work release date to 11/20/20..
--- NOTE | 2020-11-19 12:07 | PC.NURSE ---
Patient had necklace locked up in room locker that was returned to her by this RN.
[2020-11-19 21:52] LABS: Vitamin D 1,25 (OH)2 Total 87 pg/mL (18-72); Vitamin D2 1,25 (OH)2 <8 pg/mL; Vitamin D3 1,25 (OH)2 87 pg/mL
[2020-11-21 13:53] LABS: Rotavirus Stool Not Detected
== END 2020-11-19 12:05 | disposition home or self-care (01) | DRG 245 ==
LOC: ANHED 11-15 06:55 → ANH2MED 11-15 07:29
PROVIDERS: Emergency Medicine; Internal Medicine Gastroenterology; Admitting Provider Internal Medicine; Emergency Provider Emergency Medicine; Visit Provider Family Medicine
PROC: 0DJD8ZZ Inspection of Lower Intestinal Tract, Via Natural or Artificial Opening Endoscopic (ICD-10-PCS; CPT 45378; principal; 2020-11-17 13:30)
DX: K51.014 Ulcerative (chronic) pancolitis with abscess (principal); A09 Infectious gastroenteritis and colitis, unspecified; K21.9 Gastro-esophageal reflux disease without esophagitis; K64.8 Other hemorrhoids; Z87.891 Personal history of nicotine dependence
CPT/HCPCS: 36415; 74018; 74177; 80053; 80061; 82607; 82652; 82728; 82746; 83540; 83550; 83615; 83735; 84100; 84436; 84439; 84443; 85014; 85018; 85025; 85027; 85610; 85730; 86140; 86850; 86900; 86901; 87015; 87045; 87046; 87269; 87272; 87324; 87425; 87427; 88305; 96361; 96374; 96375; 96376; 99285; A9270; G0378; G0379; J1170; J1200; J2405; J2543; J2704; J2920; J7030; J7120; Q9967

== ENCOUNTER 2020-11-25 17:11 | Observation (INO) | payer MEDICAID, SELFPAY ==
--- NOTE | ~2020-11-25 | CT_ITS ---
EXAMINATION: CT abdomen pelvis w con DATE: 11/25/2020 21:22 INDICATION: Abdominal pain. Blood in stool. Diarrhea. Ulcerative colitis. TECHNIQUE: Computed tomography (CT) of the abdomen and pelvis was performed with 100 mL Omnipaque 350 intravenous contrast. Automated exposure control and iterative reconstruction technique were employe d. The dose-length product was 763.78 mGy-cm. COMPARISON: CT abdomen and pelvis 11/14/2020 FINDINGS: The visualized portions of the lung bases are clear without pneumonia or pleural effusion. The heart size is normal. No pericardial effusion. There is a moderate-sized sliding hiatal hernia. T he liver and gallbladder are normal. There is a 10 mm low-attenuation lesion in the spleen, likely be nign. The pancreas, adrenal glands, and kidneys are normal. The colon demonstrates loss of the normal haustra distally. There is widespread fat deposition in the wall of the colon which may seen with ch ronic inflammation such as ulcerative colitis. The appendix is normal. There are no dilated loops of bowel. There are no pathologically enlarged lymph nodes. There is no free intraperitoneal fluid. Ther e is mild thoracolumbar spondylosis. IMPRESSION: 1. Stable loss of the normal colonic haustra and widespread fat deposition in the wall of the colon, which may be seen with chronic inflammation from ulcerative colitis. 2. Moderate-sized sliding hiatal hernia. Reviewed, dictated and finalized at location A. IMPRESSION: 1. Stable loss of the normal colonic haustra and widespread fat deposition in t he wall of the colon, which may be seen with chronic inflammation from ulcerati ve colitis. 2. Moderate-sized sliding hiatal hernia.
[2020-11-25 18:23] VITALS: PULSE 90; RESP 16; TEMP 36; O2SAT 98
[2020-11-25 18:36] LABS: Basophils Percent Auto 0.1 % (0.2-1.2); Eosinophils Absolute Auto 0.3 K/mm3 (0-0.3); Eosinophils Percent Auto 1.8 % (0-4.4); Hematocrit 34.6 % (37.0-47.0); Immature Granulocyte Absolute 0.05 K/mm3 (0.00-0.031); Immature Granulocyte Percent A 0.4 % (0-0.5); Lymphocytes Percent Auto 18.5 % (18.3-44.2); Mean Corpuscular HGB Conc 31.8 g/dl (32-36); Mean Corpuscular Hemoglobin 28.3 pg (26-34); Mean Corpuscular Volume 88.9 fl (80-100); Mean Platelet Volume 9.5 fl (7.4-10.4); Monocytes Absolute Auto 0.8 K/mm3 (0.1-0.6); Monocytes Percent Auto 5.6 % (2.6-8.5); Neutrophils Absolute Auto 10.3 K/mm3 (1.3-6.7); Neutrophils Percent Auto 73.6 % (45.5-73.1); Platelet Count Result 369 k/mm3 (150-375); Red Blood Count 3.89 M/mm3 (4.2-5.4); Red Cell Distribution Width 13.6 % (11.5-14.5); White Blood Count 14.1 K/mm3 (4.5-10.0)
[2020-11-25 18:49] LABS: Alanine Aminotransferase 17 U/L (4-35); Albumin Level 3.9 g/dL (3.5-5.1); Alkaline Phosphatase 88 U/L (38-126); Anion Gap 6 mmol/L (8-16); Aspartate Amino Transferase 25 U/L (14-36); Bilirubin,Total 0.3 mg/dL (0.2-1.3); Blood Urea Nitrogen 11 mg/dL (7-17); Calcium 8.6 mg/dL (8.4-10.2); Carbon Dioxide 24 mmol/L (22-30); Chloride 108 mmol/L (98-107); Estimated CRCL calculation 119 ml/min; Estimated Glomerular Filt Rate > 60; Glucose 93 mg/dL (65-105); Lipase 85 U/L (23-300); Potassium 3.8 mmol/L (3.4-5.0); Sodium 138 mmol/L (137-145)
[2020-11-25 20:39] LABS: Add Urine Microscopic? YES; Appearance Urine Cloudy (Clear); Bilirubin Urine Negative (Negative); Blood Urine 1+ (Negative); Color Urine Yellow (Yellow); Glucose Urine UA Negative (Negative); Ketones Urine Negative (Negative); Leukocyte Esterase Ur Negative LEU/UL (Negative); Mucus Urine Few /lpf; Nitrate Urine Negative (Negative); Protein Urine Negative (Negative); RBC Urine 0-2 /hpf (0-2); Specific Grav Ur 1.021 (1.001-1.035); Squamous Epithelial Cell Urine Moderate /hpf (Few); Urobilinogen Urine Negative mg/dL (<2.0); WBC Urine 0-3 /hpf
--- NOTE | 2020-11-25 20:41 | ED.ABDPAIN ---
HPI - Abdominal Pain General Chief Complaint: Abdominal Pain Stated Complaint: abd pain, hx ulcerative colitis Time Seen by Provider: 11/25/20 20:29 Source: patient Mode of arrival: ambulatory Limitations: no limitations History of Present Illness HPI narrative: Patient is a 45-year-old female with a history of ulcerative colitis, recent admission to this hospital who presents for evaluation of continued abdominal pain and bloody stools. Patient denies fever, reports she has had pain throughout her abdomen but now mostly in the lower left quadrant. She has had blood and mucus present in her stools. She has been compliant with her budesonide. Patient denies any vomiting. No flank pain or dysuria. No chest pain or shortness of breath. Related Data Home Medications Medication Instructions Recorded Confirmed Entyvio See Rx Instructions .ROUTE .COMPLEX 11/15/20 11/15/20 Allergies Allergy/AdvReac Type Severity Reaction Status Date / Time sulfasalazine AdvReac Migraine Verified 11/17/20 11:55 Review of Systems Review of Systems: Narrative: CONSTITUTIONAL: Denies fever, chills ENT: Denies rhinorrhea, congestion, sore throat, or otalgia. CARDIOVASCULAR: Denies chest pain, palpitations, or edema. RESPIRATORY: Denies cough or dyspnea. GASTROINTESTINAL: Reports abdominal pain, nausea, denies diarrhea reports blood and mucus in stools GENITOURINARY: Denies dysuria or hematuria. SKIN: Denies rash or itching. MUSCULOSKELETAL: Denies back pain, joint pain, or myalgia. NEUROLOGIC: Denies headache, numbness, or weakness. [facility] Past Medical History Medical History GERD (gastroesophageal reflux disease) Lower abdominal pain Marijuana use Ulcerative colitis Surgical History Surgical History H/O colonoscopy History of esophagogastroduodenoscopy (EGD) Family History Family History Other Unknown family medical history Social History Social History Smoking packs per day: 0.5 Smoking cigarettes per day: 10.0 Years smoked: 17 Smoking pack-years: 8.50 Smoking status: Former smoker Alcohol intake: never Substance use: never Substance use type: does not use and marijuana Other substance usage details: occasional Gender identity (if verbalized by the patient): Female Spiritual care concerns: No Exam Narrative: Exam Narrative: GENERAL: Awake, alert, conversant, uncomfortable appearing HEAD: Normocephalic, atraumatic. EYES: PERRLA and EOMI. ENT: Nares clear, no rhinorrhea or epistaxis. Mucous membranes moist. NECK: Supple. CHEST: No respiratory distress, breathing even and non labored HEART: Regular rate, sinus rhythm ABDOMEN: No distention, left lower quadrant tenderness with guarding present, no rebound EXTREMITIES: Normal range of motion. No edema. SKIN: Warm, dry, no rash. NEURO:No focal deficits. Alert and oriented x3 Course Vital Signs Vital signs: Vital Signs Temperature 36.0 C L 11/25/20 18:23 Pulse Rate 90 11/25/20 18:23 Respiratory Rate 16 11/25/20 18:23 Pulse Oximetry 98 11/25/20 18:23 Temperature 36.0 C L 11/25/20 18:23 Pulse Rate 82 11/25/20 22:31 Respiratory Rate 13 11/25/20 22:31 Blood Pressure 126/78 11/25/20 22:31 Pulse Oximetry 100 11/25/20 22:31 MDM - Abdominal Pain MDM Narrative Medical decision making narrative: Patient presented for evaluation of worsening lower abdominal pain. At the time of assessment, ABCs are intact and vital signs are stable. Patient does have a leukocytosis. On CT imaging there is evidence of chronic inflammatory changes without abscess or perforation. Dr. Dooley consulted and he recommended the patient to receive scheduled IV steroids. Patient will be admitted for continuous abdominal pain, ulce
[2020-11-25] MEDS: SODIUM CHLORIDE 0.9% IV 1,000 ML 999 ML IV CONT (21:07)
[2020-11-25] MEDS: MORPHINE SULFATE (*CRX) 4 MG/ML INJ IV PUSH (21:10)
[2020-11-25 21:25] VITALS: BP 119/83; PULSE 86; RESP 12; O2SAT 99
[2020-11-25 21:31] VITALS: BP 119/81; PULSE 78; RESP 12; O2SAT 97
[2020-11-25] MEDS: ONDANSETRON INJ 4 MG/2 ML VIAL IV PUSH (21:45)
[2020-11-25 22:01] VITALS: BP 125/79; PULSE 84; RESP 12; O2SAT 98
[2020-11-25] MEDS: methylPREDNISolone SOD SUCC 40 MG VIAL IV PUSH (22:21)
[2020-11-25 22:31] VITALS: BP 126/78; PULSE 82; RESP 13; O2SAT 100
[2020-11-25] MEDS: HYDROmorphone HCL INJ (*CRX) 1 MG/ML SYR 0.5 MG IV PUSH (23:36)
[2020-11-26] VITALS (12 sets, daily range): BP systolic 107–127; BP diastolic 60–81; PULSE 51–88; RESP 12–20; TEMP 36.2–36.8; O2SAT 90–100; BMI 31.3
[2020-11-26] MEDS: SODIUM CHLORIDE 0.9% IV 1,000 ML 125 ML IV CONT ×3 (01:19→17:34)
[2020-11-26] MEDS: HYDROmorphone HCL INJ (*CRX) 1 MG/ML SYR 0.5 MG IV PUSH ×3 (01:21→08:34)
[2020-11-26 04:25] LABS: Basophils Percent Auto 0.2 % (0.2-1.2); Eosinophils Percent Auto 0.1 % (0-4.4); Hematocrit 31.5 % (37.0-47.0); Immature Granulocyte Absolute 0.04 K/mm3 (0.00-0.031); Immature Granulocyte Percent A 0.4 % (0-0.5); Lymphocytes Percent Auto 10.1 % (18.3-44.2); Mean Corpuscular HGB Conc 31.7 g/dl (32-36); Mean Corpuscular Hemoglobin 28.2 pg (26-34); Mean Corpuscular Volume 88.7 fl (80-100); Mean Platelet Volume 8.9 fl (7.4-10.4); Monocytes Absolute Auto 0.1 K/mm3 (0.1-0.6); Monocytes Percent Auto 0.7 % (2.6-8.5); Neutrophils Absolute Auto 8.8 K/mm3 (1.3-6.7); Neutrophils Percent Auto 88.5 % (45.5-73.1); Platelet Count Result 378 k/mm3 (150-375); Red Blood Count 3.55 M/mm3 (4.2-5.4); Red Cell Distribution Width 13.6 % (11.5-14.5); White Blood Count 9.9 K/mm3 (4.5-10.0)
[2020-11-26 04:42] LABS: Alanine Aminotransferase 16 U/L (4-35); Albumin Level 3.5 g/dL (3.5-5.1); Alkaline Phosphatase 83 U/L (38-126); Anion Gap 4 mmol/L (8-16); Aspartate Amino Transferase 18 U/L (14-36); Bilirubin,Total 0.2 mg/dL (0.2-1.3); Blood Urea Nitrogen 8 mg/dL (7-17); Calcium 7.9 mg/dL (8.4-10.2); Carbon Dioxide 23 mmol/L (22-30); Chloride 110 mmol/L (98-107); Estimated CRCL calculation 119 ml/min; Estimated Glomerular Filt Rate > 60; Glucose 133 mg/dL (65-105); Potassium 4.2 mmol/L (3.4-5.0); Sodium 137 mmol/L (137-145)
--- NOTE | 2020-11-26 06:00 | ADMGEN ---
This patient, Brigid Neves, was admitted to IMU Room 210-01 at 0600. Patient/family oriented to hospital policies and general routines including ID bracelet, bed and alarms, visiting hours, pain management, procedures, bathroom and other care routines, personal items, smoking policy, room service/diet, and visiting hours. Information on how to activate the Rapid Response Team has been discussed. Patient/Family are encouraged to report perceived risks to care and to ask questions if they do not understand what they are told or what they should do.
[2020-11-26] MEDS: methylPREDNISolone SOD SUCC 40 MG VIAL IV PUSH ×3 (06:28→22:02)
[2020-11-26] MEDS: diphenhydrAMINE HCl CAP 25 MG CAPSULE 50 MG PO ×3 (11:25→23:17)
[2020-11-26] MEDS: HYDROcodone/acetaminophen (*CRX) 5-325 MG TABLET 1 TAB PO ×3 (11:25→22:01)
--- NOTE | 2020-11-26 14:26 | PM.IMHP ---
H&P: HPI History of Present Illness Date/Time: 11/26/20 14:26 patient is a 45-year-old female with history of ulcerative colitis patient was recently discharge about a week ago after she was treated for flare up, today patient presented emergency department with complaint left lower quadrant abdominal pain, nausea, bloody stool patient has been admitted further evaluation, patient states the pain is persisting and oral medication is not helping, to further evaluate patient had a CT scan of the abdomen showed Stable loss of the normal colonic haustra and widespread fat deposition in the wall of the colon, which may be seen with chronic inflammation from ulcerative colitis, when comparing to CT scan of abdomen done on 11/14 there is no significant change, discussed with the patient will try to manage her pain with oral pain medication, hydration, and will consult GI further recommendation. Chief Complaint: Abdominal pain Review of Systems Review of Systems: All systems reviewed & are unremarkable except as noted in HPI and below PMFSH Past Medical History Medical History GERD (gastroesophageal reflux disease) Lower abdominal pain Marijuana use Ulcerative colitis Surgical History Surgical History H/O colonoscopy History of esophagogastroduodenoscopy (EGD) Family History Family History Other Unknown family medical history Social History Social History Smoking packs per day: 0.5 Smoking cigarettes per day: 10.0 Years smoked: 17 Smoking pack-years: 8.50 Smoking status: Former smoker Tobacco type: cigarettes Alcohol intake: never Substance use: never Substance use type: marijuana Other substance usage details: occasional Gender identity (if verbalized by the patient): Female Spiritual care concerns: No Meds Home Medications and Allergies Home Medications Medication Instructions Recorded Confirmed Type Entyvio See Rx Instructions .ROUTE .COMPLEX 11/15/20 11/26/20 History budesonide [Entocort EC] 9 mg PO QAM #30 ea 11/19/20 11/26/20 Rx folic acid 1 mg PO DAILY #30 tablet 11/19/20 11/26/20 Rx ondansetron HCl [Zofran] 4 mg PO Q8H PRN #20 tablet 11/19/20 11/26/20 Rx oxycodone-acetaminophen 1 tablet PO Q4H PRN #12 tablet 11/19/20 11/26/20 Rx Allergies Allergy/AdvReac Type Severity Reaction Status Date / Time sulfasalazine AdvReac Migraine Verified 11/17/20 11:55 Vital Signs Vital Signs - 24 hr 11/25/20 18:23 11/25/20 21:25 11/25/20 21:31 Temperature 96.8 F L Pulse Rate 90 86 78 Respiratory Rate 16 12 12 Blood Pressure 119/83 119/81 Pulse Oximetry 98 99 97 11/25/20 22:01 11/25/20 22:31 11/26/20 01:17 Temperature 97.5 F L Pulse Rate 84 82 77 Respiratory Rate 12 13 16 Blood Pressure 125/79 126/78 107/70 Pulse Oximetry 98 100 100 11/26/20 04:28 11/26/20 05:38 11/26/20 06:00 Temperature 97.2 F L 97.2 F L 97.6 F Pulse Rate 66 66 69 Respiratory Rate 15 15 20 Blood Pressure 110/72 110/72 127/81 Pulse Oximetry 97 97 100 11/26/20 06:28 11/26/20 08:00 11/26/20 08:08 Temperature 97.5 F L Pulse Rate 56 L 51 L 62 Respiratory Rate 14 Blood Pressure 120/73 Pulse Oximetry 98 11/26/20 11:55 11/26/20 12:00 Temperature 98.1 F Pulse Rate 68 72 Respiratory Rate 12 Blood Pressure 110/71 Pulse Oximetry 99 Exam Narrative: Exam Narrative: Moderately obese Patient is comfortable, NAD HEENT: eyes are clear and none icteric LUNGS: Normal respiratory effort ABD: Moderately obese complains of tenderness in left lower quadrant Lower extremities: no edema SKIN: nonjaundiced Neuro: grossly intact normal speech. H&P: Results Labs Labs: Short CBC 11/25/20 11/26/20 Range/Units 18:30 04:12 WBC 14.1 H 9.9 (4.5-10.0) K/mm3 Hgb 11
--- NOTE | 2020-11-26 16:58 | WPDGICN ---
Assessment and Plan Assessment and plan (1) Ulcerative colitis: Code(s): K51.90 - Ulcerative colitis, unspecified, without complications Status: Inactive Assessment and Plan: she needs to get second loading dose of entyvio and be compliant (she discontinued medicine for a year because insurance issues) in the meantime continue with iv steroids and probably tomorrow can switch to oral steroids then start slow taper (40mg daily to decrease 5 mg each week), also will start on mesalamine to see if will help at all (2) Lower abdominal pain: Code(s): R10.30 - Lower abdominal pain, unspecified Status: Acute Assessment and Plan: advance diet as tolerated patient asking for more pain meds (3) Diarrhea: Qualifiers: Diarrhea type: presumed infectious Qualified Code(s): R19.7 - Diarrhea, unspecified Code(s): R19.7 - Diarrhea, unspecified Status: Acute (4) Chronic anemia: Code(s): D64.9 - Anemia, unspecified Status: Acute Assessment and Plan: stable, probably from uc recent colonoscopy last week GI Consult Note Consult date/time: 11/26/20 16:58 Reason for consult: ulcerative colitis HPI: Brigid Neves is a 45 year old female who I met her during recent hospitalization last week, colonoscopy showed moderate ulcerative colitis and discharged on budesonide (patient claimed that work in the past) and she is supposed to get her second dose of entyvio on November 28 at [facility]. She is back again with more left lower quadrant abdominal pain, nausea, bloody stool and asking to get more pain medications. CT scan of the abdomen reviewed and showed stable loss of the normal colonic haustra and widespread fat deposition in the wall of the colon, which may be seen with chronic inflammation from ulcerative colitis, started on iv steroids. Review of Systems Constitutional: Constitutional: Denies chills Eyes: Eyes: Denies blurry vision ENT: Reports Normal hearing present Cardiovascular: Cardiovascular: Denies chest pain Respiratory: Respiratory: Denies dyspnea Gastrointestinal: Gastrointestinal: Reports abdominal pain and Reports diarrhea Genitourinary: Genitourinary: Denies hematuria Musculoskeletal: Musculoskeletal: Denies neck pain Integumentary/Breasts: Skin/Breast: Denies dry skin Neurologic: Denies headache(s) Psychiatric: Psychiatric: Reports anxiety PMFSH Past Medical History Medical History GERD (gastroesophageal reflux disease) Lower abdominal pain Marijuana use Ulcerative colitis Surgical History Surgical History H/O colonoscopy History of esophagogastroduodenoscopy (EGD) Family History Family History Other Unknown family medical history Social History Social History Smoking packs per day: 0.5 Smoking cigarettes per day: 10.0 Years smoked: 17 Smoking pack-years: 8.50 Smoking status: Former smoker Tobacco type: cigarettes Alcohol intake: never Substance use: never Substance use type: marijuana Other substance usage details: occasional Gender identity (if verbalized by the patient): Female Spiritual care concerns: No Meds Home Medications and Allergies Home Medications Medication Instructions Recorded Confirmed Type Entyvio See Rx Instructions .ROUTE .COMPLEX 11/15/20 11/26/20 History budesonide [Entocort EC] 9 mg PO QAM #30 ea 11/19/20 11/26/20 Rx folic acid 1 mg PO DAILY #30 tablet 11/19/20 11/26/20 Rx ondansetron HCl [Zofran] 4 mg PO Q8H PRN #20 tablet 11/19/20 11/26/20 Rx oxycodone-acetaminophen 1 tablet PO Q4H PRN #12 tablet 11/19/20 11/26/20 Rx Allergies Allergy/AdvReac Type Severity Reaction Status Date / Time sulfasalazine AdvReac Migraine Verified 11/17/20 11:55 Vit
[2020-11-26] MEDS: ONDANSETRON INJ 4 MG/2 ML VIAL IV PUSH ×2 (17:09→23:17)
--- NOTE | 2020-11-26 17:13 | PC.NURSE ---
This patient, Brigid Neves, was transferred to [facility] [place] via bed on 11/26/20 at 1713. Personal belongings sent with patient. Report given to PAUL Massey. Appropriate documentation sent with patient.
--- NOTE | 2020-11-26 17:26 | PC.NURSE ---
Pt transferred from IMU to room 251. Patient oriented to the room.
[2020-11-26] MEDS: MESALAMINE 400 MG DELAYED RELEASE CAPSULE 800 MG PO (18:20)
[2020-11-27] MEDS: SODIUM CHLORIDE 0.9% IV 1,000 ML 125 ML IV CONT ×3 (04:19→19:04)
[2020-11-27] MEDS: HYDROcodone/acetaminophen (*CRX) 5-325 MG TABLET 1 TAB PO ×5 (04:22→23:12)
[2020-11-27] MEDS: methylPREDNISolone SOD SUCC 40 MG VIAL IV PUSH ×3 (04:22→20:31)
[2020-11-27 06:00] VITALS: BP 114/69; PULSE 56; RESP 14; TEMP 36.6; O2SAT 98
--- NOTE | 2020-11-27 08:43 | PC.NURSE ---
Assessment attempted. Patient was asleep upon entering her room. I called her name and she did not wake up I shook her and she still did not wake up. I then checked for a pupil response and she pushed me away and told me to get out of her room. Dr. Cummings notified.
[2020-11-27] MEDS: MESALAMINE 400 MG DELAYED RELEASE CAPSULE 800 MG PO ×3 (10:27→17:02)
[2020-11-27] MEDS: diphenhydrAMINE HCl CAP 25 MG CAPSULE 50 MG PO ×3 (10:30→23:14)
[2020-11-27] MEDS: ONDANSETRON INJ 4 MG/2 ML VIAL IV PUSH ×3 (10:31→19:03)
[2020-11-27 14:00] VITALS: BP 123/72; PULSE 72; RESP 18; TEMP 37.6; O2SAT 98
--- NOTE | 2020-11-27 14:07 | PM.IMPN ---
Progress Note: A&P Assessment and Plan (1) Lower abdominal pain: Code(s): R10.30 - Lower abdominal pain, unspecified Status: Acute Assessment and Plan: 11/27/20 14:07 31patient is a 45-year-old female with history of ulcerative colitis patient was recently discharge about a week ago after she was treated for flare up, today patient presented emergency department with complaint left lower quadrant abdominal pain, nausea, bloody stool patient has been admitted further evaluation, patient states the pain is persisting and oral medication is not helping, to further evaluate patient had a CT scan of the abdomen showed Stable loss of the normal colonic haustra and widespread fat deposition in the wall of the colon, which may be seen with chronic inflammation from ulcerative colitis, when comparing to CT scan of abdomen done on 11/14 there is no significant change, discussed with the patient will try to manage her pain with oral pain medication, hydration, and will consult GI further recommendation. Today patient states feeling much better no nausea or vomiting able to tolerate a clear liquid, patient was seen by GI and started the patient on Solu-Medrol and recommended the patient should go back her GI at the [facility] and needs to get second loading dose of entyvio, patient is agreeable states that now she has any insurance and she will follow-up with her GI, will continue monitor advanced her diet as tolerated plan is to discharge the patient tomorrow on oral slow tapering dose prednisone (2) Ulcerative colitis, acute: Qualifiers: Digestive disease complication type: unspecified complication Qualified Code(s): K51.919 - Ulcerative colitis, unspecified with unspecified complications Code(s): K51.90 - Ulcerative colitis, unspecified, without complications Status: Acute Assessment and Plan: Plan is above (3) Diarrhea: Qualifiers: Diarrhea type: presumed infectious Qualified Code(s): R19.7 - Diarrhea, unspecified Code(s): R19.7 - Diarrhea, unspecified Status: Acute Assessment and Plan: Will monitor and hydrate the patient as needed Subjective Date/time seen: 11/27/20 14:07 31patient is a 45-year-old female with history of ulcerative colitis patient was recently discharge about a week ago after she was treated for flare up, today patient presented emergency department with complaint left lower quadrant abdominal pain, nausea, bloody stool patient has been admitted further evaluation, patient states the pain is persisting and oral medication is not helping, to further evaluate patient had a CT scan of the abdomen showed Stable loss of the normal colonic haustra and widespread fat deposition in the wall of the colon, which may be seen with chronic inflammation from ulcerative colitis, when comparing to CT scan of abdomen done on 11/14 there is no significant change, discussed with the patient will try to manage her pain with oral pain medication, hydration, and will consult GI further recommendation. Today patient states feeling much better no nausea or vomiting able to tolerate a clear liquid, patient was seen by GI and started the patient on Solu-Medrol and recommended the patient should go back her GI at the [facility] and needs to get second loading dose of entyvio, patient is agreeable states that now she has any insurance and she will follow-up with her GI, will continue monitor advanced her diet as tolerated plan is to discharge the patient tomorrow on oral slow tapering dose prednisone Review of Systems Review of Systems: All systems reviewed & are unremarkable except as noted in HPI and below Exam Narrative: Exam Narrative: Moderately obese Patient is comfortable, NAD HEENT: eyes are clear and none icteric LUNGS: Normal respiratory effort ABD: Moderately obese complains of tenderness in left lower quadrant Lower extremities: no edema SKIN: n
--- NOTE | 2020-11-27 17:33 | WPDGIPROGNO ---
Progress Note: A&P Assessment and Plan (1) Ulcerative colitis, acute: Qualifiers: Digestive disease complication type: unspecified complication Qualified Code(s): K51.919 - Ulcerative colitis, unspecified with unspecified complications Code(s): K51.90 - Ulcerative colitis, unspecified, without complications Status: Acute Assessment and Plan: recent colonoscopy showed active UC, she just recently started again entyvio and her second dose is tomorrow in [facility]. She can be discharged in the morning and get her second dose, then follow up in my office in 2-3 weeks we will try to transfer her entyvio infusions over here started on mesalamine, also she can go home with slow steroid taper (40mg daily to decrease 5mg each week) (2) Diarrhea: Qualifiers: Diarrhea type: presumed infectious Qualified Code(s): R19.7 - Diarrhea, unspecified Code(s): R19.7 - Diarrhea, unspecified Status: Acute Assessment and Plan: from uc (3) Lower abdominal pain: Code(s): R10.30 - Lower abdominal pain, unspecified Status: Acute Assessment and Plan: better Subjective Date/time seen: 11/27/20 17:33 Interval history: still with diarrhea but feeling better Review of Systems Review of Systems: All systems reviewed & are unremarkable except as noted in HPI and below Exam Const: General: comfortable and no acute distress HENMT: General nose exam: Normal nares present Eyes: General: appearance normal, both eyes and all related structures Neck: Neck: no JVD Resp: Auscultation: clear to auscultation bilaterally Cardio: Rate: regular rate Rhythm: regular rhythm GI: Inspection: non-distended GI Palp: Yes Soft to palpation and Yes Tenderness to palpation present (GI) (mild ttp in lower abdomen, no rebound) Auscultation: normal bowel sounds Skin: General skin exam: normal color Neuro: Speech: normal speech Motor exam (neuro): Normal motor muscle tone present throughout Extrem: General: normal to inspection Psych: Mental Status: mental status grossly normal Objective Data Vital Signs Vital Signs: Vital Signs - 24 hr 11/26/20 18:00 11/26/20 22:00 11/27/20 06:00 Temperature 97.8 F 97.7 F 97.8 F Pulse Rate 82 88 56 L Respiratory Rate 16 14 14 Blood Pressure 107/60 118/65 114/69 Pulse Oximetry 96 90 98 11/27/20 14:00 Temperature 99.7 F H Pulse Rate 72 Respiratory Rate 18 Blood Pressure 123/72 Pulse Oximetry 98 Intake/Output Intake/Output: Intake & Output 11/24/20 11/25/20 11/26/20 11/27/20 23:59 23:59 23:59 23:59 Intake Total 1000 2340 2940 Output Total 300 Balance 1000 2040 2940 Meds/Results Medications: Active Medications Generic Name Dose Route Start Last Admin Trade Name Freq PRN Reason Stop Dose Admin Hydrocodone Bitart/Acetaminophen 1 tab 11/26/20 09:24 11/27/20 14:48 Hydrocodone/Acetaminophen (*Crx) 5-325 Mg Tablet PO 1 tab Q4H PRN Administration pain of 4-10 Diphenhydramine HCl 50 mg 11/26/20 09:24 11/27/20 17:03 Diphenhydramine Hcl Cap 25 Mg Capsule PO 50 mg Q6H PRN Administration Itching Sodium Chloride 1,000 mls @ 125 mls/hr 11/25/20 22:55 11/27/20 12:21 Normal Saline Iv IV CONT 125 mls/hr .Q8H ABBIE Administration Mesalamine 800 mg 11/26/20 17:00 11/27/20 17:02 Mesalamine 400 Mg Delayed Release Capsule PO 800 mg TID ABBIE Administration Methylprednisolone Sodium Succinate 40 mg 11/26/20 20:00 11/27/20 12:16 Methylprednisolone Sod Succ 40 Mg Vial IV PUSH 40 mg Q8H ABBIE Administration Ondansetron HCl 4 mg 11/25/20 22:55 11/27/20 14:48 Ondansetron Inj 4 Mg/2 Ml Vial IV PUSH 4 mg Q4H PRN Administration Nausea Radiology Results: ITS Impressions Abdomen/Pelvis CT 11/25/20 21:29 IMPRESSION: 1. Stable loss of the normal colonic haustra and widespread fat deposition in the wall of the colon, which may be seen with chronic inflammat
[2020-11-27 20:00] VITALS: PULSE 90; RESP 16; O2SAT 95
[2020-11-27 21:34] VITALS: BP 119/81; PULSE 90; RESP 16; TEMP 36.2; O2SAT 95
[2020-11-28] MEDS: HYDROcodone/acetaminophen (*CRX) 5-325 MG TABLET 1 TAB PO ×2 (03:47→09:03)
[2020-11-28] MEDS: methylPREDNISolone SOD SUCC 40 MG VIAL IV PUSH ×2 (03:51→11:34)
[2020-11-28] MEDS: ONDANSETRON INJ 4 MG/2 ML VIAL IV PUSH ×2 (03:55→09:03)
[2020-11-28 06:00] VITALS: BP 106/61; PULSE 65; RESP 16; TEMP 36.2; O2SAT 98
[2020-11-28] MEDS: MESALAMINE 400 MG DELAYED RELEASE CAPSULE 800 MG PO (09:02)
--- NOTE | 2020-11-28 11:09 | PM.DS ---
DS: Admitting Diagnosis Admitting Diagnosis Admitting Diagnosis: Chief Complaint: Abdominal pain DS: Discharge Diagnosis Discharge Diagnosis (1) Lower abdominal pain: Code(s): R10.30 - Lower abdominal pain, unspecified Status: Acute Assessment and Plan: 11/27/20 14:07 atient is a 45-year-old female with history of ulcerative colitis patient was recently discharge about a week ago after she was treated for flare up, today patient presented emergency department with complaint left lower quadrant abdominal pain, nausea, bloody stool patient has been admitted further evaluation, patient states the pain is persisting and oral medication is not helping, to further evaluate patient had a CT scan of the abdomen showed Stable loss of the normal colonic haustra and widespread fat deposition in the wall of the colon, which may be seen with chronic inflammation from ulcerative colitis, when comparing to CT scan of abdomen done on 11/14 there is no significant change, discussed with the patient will try to manage her pain with oral pain medication, hydration, and will consult GI further recommendation. Today patient states feeling much better no nausea or vomiting able to tolerate a clear liquid, patient was seen by GI and started the patient on Solu-Medrol and recommended the patient should go back her GI at the [facility] and needs to get second loading dose of entyvio, patient is agreeable states that now she has any insurance and she will follow-up with her GI, will continue monitor advanced her diet as tolerated plan is to discharge the patient tomorrow on oral slow tapering dose prednisone (2) Ulcerative colitis, acute: Qualifiers: Digestive disease complication type: unspecified complication Qualified Code(s): K51.919 - Ulcerative colitis, unspecified with unspecified complications Code(s): K51.90 - Ulcerative colitis, unspecified, without complications Status: Acute Assessment and Plan: Plan is above (3) Diarrhea: Qualifiers: Diarrhea type: presumed infectious Qualified Code(s): R19.7 - Diarrhea, unspecified Code(s): R19.7 - Diarrhea, unspecified Status: Acute Assessment and Plan: Will monitor and hydrate the patient as needed DS: Summary Hospital Course Reason for hospitalization: patient is a 45-year-old female with history of ulcerative colitis patient was recently discharge about a week ago after she was treated for flare up, today patient presented emergency department with complaint left lower quadrant abdominal pain, nausea, bloody stool patient has been admitted further evaluation, patient states the pain is persisting and oral medication is not helping, to further evaluate patient had a CT scan of the abdomen showed Stable loss of the normal colonic haustra and widespread fat deposition in the wall of the colon, which may be seen with chronic inflammation from ulcerative colitis, when comparing to CT scan of abdomen done on 11/14 there is no significant change, discussed with the patient will try to manage her pain with oral pain medication, hydration, and will consult GI further recommendation. Chief Complaint: Abdominal pain Hospital Course: patient is a 45-year-old female with history of ulcerative colitis patient was recently discharge about a week ago after she was treated for flare up, today patient presented emergency department with complaint left lower quadrant abdominal pain, nausea, bloody stool patient has been admitted further evaluation, patient states the pain is persisting and oral medication is not helping, to further evaluate patient had a CT scan of the abdomen showed Stable loss of the normal colonic haustra and widespread fat deposition in the wall of the colon, which may be seen with chronic inflammation from ulcerative colitis, when comparing to CT scan of abdomen done on 11/14 there is no significant change, discussed with the dalila
== END 2020-11-28 13:05 | disposition home or self-care (01) ==
LOC: ANHED 11-26 00:43 → ANHIMU 11-26 12:53 → ANH2MED 11-28 11:09 → ANH3MEDSUR 12-02 09:19 → ANHIMU 12-02 09:19
PROVIDERS: Admitting Provider Family Medicine; Emergency Provider Emergency Medicine; Visit Provider Family Medicine
DX: R10.30 Lower abdominal pain, unspecified (principal); K51.90 Ulcerative colitis, unspecified, without complications; K44.9 Diaphragmatic hernia without obstruction or gangrene; D64.9 Anemia, unspecified; K21.9 Gastro-esophageal reflux disease without esophagitis; F12.90 Cannabis use, unspecified, uncomplicated; Z87.891 Personal history of nicotine dependence
CPT/HCPCS: 36415; 74177; 80053; 81001; 81025; 83690; 85025; 96361; 96365; 96374; 96375; 96376; 99285; A9270; G0378; G0379; J0131; J1170; J2270; J2405; J2920; J7030; Q9967